=== PATIENT | female | born 1960 | race Two or more races ===

== ENCOUNTER 2025-05-16 08:26 | Outpatient (CLI) | payer OTHER | END 2025-05-16 08:28 | disposition home or self-care (01) | LOC: SONOGRAMA 08:26 | PROVIDERS: ATTEND Pathology Anatomic Pathology & Clinical Pathology | DX: D34 Benign neoplasm of thyroid gland (principal); E07.89 Other specified disorders of thyroid; C73 Malignant neoplasm of thyroid gland ==